=== PATIENT | male | born 1970 | race Caucasian/White ===

== ENCOUNTER 2019-02-02 09:25 | Observation (INO) ==
[2019-02-02 10:01] LABS: BASO# 0.02 X1000 (0.0-0.2); BASO% 0.2 % (0.0-0.8); EOS# 0.04 X1000 (0.0-0.7); EOS% 0.5 % (0.0-10.0); HEMATOCRIT 45.9 % (42.0-52.0); HEMOGLOBIN 15.6 g/dL (14.0-18.0); IMM GRAN# 0.02 X1000 (0.0-0.04); IMM GRAN% 0.2 % (0.0-0.5); LYMPH% 12.6 % (20.5-51.1); MCH 29.2 PG (27-31); MONO# 0.54 X1000 (0.11-0.59); MONO% 6.2 % (1.7-9.3); MPV 10.6 FL (7.4-10.4); NEUT# 7.04 X1000 (1.4-6.5); NEUT% 80.3 % (42.2-75.2); PLT 230 X1000 (130-400); RBC 5.34 XMIL (4.7-6.1); RDW 12.9 % (11.5-14.5); WBC 8.76 X1000 (4.8-10.8)
--- NOTE | 2019-02-02 10:14 | PROVIDER DOCUMENTATION ---
This chart was entered by Patricia Trinidad Scribe, acting as scribe for Ramírez Nick MD. HPI-Cardiac General - General Chief Complaint: Syncope Stated Complaint: PASSED OUT/HEART PT Time Seen by Provider: 02/02/19 09:43 Source: patient, family () Allergies/Adverse Reactions: Patient Allergies Allergy/AdvReac Type Severity Reaction Status Date / Time No Known Allergies Allergy Unverified 09/13/14 08:53 Home Medications: Home Medication List Medication Instructions Recorded Confirmed Last Taken Type Aspirin 81 mg PO DAILY #100 chewtab 12/08/12 02/02/19 02/02/19 09:00 Rx 81mg Fexofenadine [Ruby] 180 mg PO DAILY #30 tablet 12/08/12 02/02/19 02/02/19 09:00 Rx 180mg Metoprolol [Lopressor] 50 mg PO BID #60 tablet 12/08/12 02/02/19 02/02/19 09:00 Rx 50 mg Clopidogrel Bisulfate [Plavix] 75 mg PO DAILY 09/13/14 02/02/19 02/01/19 21:00 History 75mg Atorvastatin Calcium 40 mg PO HS 02/02/19 02/02/19 Unknown History Losartan Potassium 50 mg PO DAILY 02/02/19 02/02/19 02/01/19 21:00 History 50mg ATORVAstatin [Lipitor] 80 mg PO QHS tab 02/03/19 Unknown Rx Montelukast [Singulair] 10 mg PO QHS #30 tab 02/03/19 Unknown Rx - History of Present Illness-Cardiac Nature of Presenting Problem: 48 y/o male presents to the ED with complaint of syncopal episode with seizure- like activity 0130 this am. states the patient felt clamy, was shivering in bed and while attempting to go to the restroom stated he felt as if he was going to pass out and did fall to the floor with observing seizure-like activity for 2-3 seconds. The patient gives a history of previous [place] 7 years ago with stent placed by Dr. Cervantes 6 years ago and the patient now sees Dr. Wharton at [facility] for cardiology follow-up. NKDA. Onset/Duration: this morning Timing: resolved prior to arrival Context/Activities at Onset: reports: sleep Palpitation Quality: N/A History of arrythmia: reports: none Recent use of:: reports: no stimulants Nitro Today/Relief: reports: no nitro taken today Aspirin Treatment Today: reports: no aspirin today Prior Chest Pain/Cardiac Workup: reports: heart attack, other (stent placement) Associated Symptoms: reports: diaphoresis, syncope. denies: abdominal pain, fever/chills, nausea, shortness of breath, vomiting Similar Symptoms Previously?: Yes Recently Seen Here or By Another Healthcare Provider: No Review of Systems - Adult - REVIEW OF SYSTEMS - ADULT Constitutional: reports: chills. denies: fever, night sweats Eyes: reports: no symptoms reported Ears, Nose, Mouth & Throat: reports: no symptoms reported Cardiovascular: reports: syncope. denies: chest pain, palpitations Respiratory: denies: hemoptysis, shortness of breath, wheezing Gastrointestinal: reports: diarrhea (x1 this am). denies: nausea, vomiting Genitourinary: reports: no symptoms reported Musculoskeletal: reports: no symptoms reported Integumentary: reports: other (diaphoresis). denies: itching, rash Neurological: reports: syncope. denies: dizziness/vertigo, headache/migraines Psychiatric: reports: no symptoms reported Endocrine: reports: no symptoms reported Hematologic/Lymphatic: reports: no symptoms reported Allergic/Immunologic: reports: no symptoms reported All Other Systems: Reviewed and Negative Past History - Adult - PAST MEDICAL HISTORY-ADULT Review of Records: reports: Old Records Reviewed, Medications Reviewed Major Childhood Illnesses: reports: denies history Cardiovascular: reports: CAD, HTN, hyperlipidemia - PRIOR SURGERIES/PROCEDURES Surgical/Procedure History: reports: cardiac stent - PRIOR HOSPITALIZATIONS Prior Hospitalizations: reports: for other non-related - IMMUNIZATION STATUS Childhood Immunizations: See Nurse Assessment Flu Vaccine: See Nurse Assessment - FAMILY HISTORY Family History: reviewed, not pertinent - SOCIAL HISTORY Smoking: non-smoker Substance Use: none/never Living Situation: family Physical Exam-General - PHYSICAL EXAM-ADULT Initial Vital Signs Reviewed: Yes - CONSTITUTIONAL General Appearance: alert, no apparent distress - EYES Eyes: PERRL/EOMI, pink conjunctivae - HEAD, EARS, NOSE, MOUTH & THROAT HENMT: normocephalic/atraumatic, moist mucous membranes - NECK Neck: full range of motion, supple - RESPIRATORY Respiratory: lungs clear, normal breath sounds. negative: rales, rhonchi - CARDIOVASCULAR Cardiovascular: regular rate, rhythm, no gallop, no murmur - GASTROINTESTINAL (ABDOMEN) Abdominal Exam: non tender, soft - SKIN Integumentary: normal color, warm/dry. negative: diaphoresis - NEUROLOGIC Neurologic: grossly normal - PSYCHIATRIC Psych/Mental Status: normal mood/affect - HEART Score HEART Score: History: Slightly Suspicious HEART Score: ECG: Normal HEART Score: Age: 45-65 Years HEART Score: Risk Factors for Atherosclerotic Disease: > or = 3 Risk Factors or History of Atherosclerotic Disease HEART Score: Troponin: < or = Normal Limit Total HEART Score:: 3 Progress - PLAN OF CARE/RESULTS Result Diagrams: 02/03/19 06:50 02/03/19 06:50 - EKG 1 Time of EKG reading by physician:: 09:54 EKG Read and Signed by:: Ramírez Nick EKG Interpretation (*Must complete 3 of following elements*): Abnormal Rate: 80 Rhythm: NSR [place]: left Comments: septal infarct age undetermined - CT/MRI 1 CT Study: Head Impression: Normal (EXAM: CT HEAD W/O CONTRAST INDICATION: seizure TECHNIQUE: This exam was performed using automated exposure control, adjustment of mA or kV according to patient size, and/or use of iterative reconstruction technique. COMPARISON: 09/13/2014 FINDINGS: There is an incidental stable prominent Virchow-Harrison space adjacent to the right basal ganglion. There is no definite acute infarct given the limited sensitivity of CT versus MRI. There is no discrete intracranial mass, mass effect, or intracranial hemorrhage. The surrounding soft tissues and bony structures are essentially unremarkable. IMPRESSION: No evidence of acute intracranial pathology. Electronically signed by Emmanuel Costa 02/02/2019 10:50 AM) - CONSULTS/PCP/HOSPITALIST Notification #1 *Consult/PCP/Hospitalist*: Dr. Dan, Cardiology Time Discussed: 11:23 Reason/Comments: admit for observation and serial enzymes Consult Disposition: Admit Departure - Departure Date of Disposition Decision: 02/02/19 Time of Disposition Decision: 12:46 DIAGNOSIS: Syncope Qualifiers: Syncope type: unspecified Qualified Code(s): R55 - Syncope and collapse Disposition: ADMITTED INPATIENT 09 Certified Medical Emergency: Emergent Condition: Stable - Critical Care Note This patient required my direct & personal management of CC.: Yes Attestation - Physician/ ALEC Attestation Patient care was provided by Advanced Practice Provider:: No The physician spent face to face time with patient:: Yes Advanced Practice Provider documentation review:: Supervising physician onsite and consulted in the evaluation and care of this patient. The physician did have a face to face encounter with the patient. This chart was documented by the indicated scribe, (Patricia Trinidad, Marcelino) and accurately reflects the services I performed and decisions made by me, Ramírez Nick MD, as attested by the provider's signature.
[2019-02-02 10:17] LABS: AGAP 12; ALB/GLOB RATIO 1.9; ALBUMIN 4.7 g/dL (3.5-5.0); ALKALINE PHOSPHATASE 134 U/L (32-122); BUN 10 mg/dL (8-22); CALCIUM 9.4 mg/dL (8.8-10.2); CHLORIDE 100 mmol/L (98-107); CK PROFILE 147 U/L (24-204); COSMO 276; ESTIMATED GFR > 60; GLUCOSE 121 mg/dL (70-104); GOT 23 U/L (10-34); GPT 33 U/L (10-44); POTASSIUM 4.3 mmol/L (3.5-5.1); SODIUM 138 mmol/L (136-145); TCO2 26 mmol/L (25-35); TOTAL BILIRUBIN 0.58 mg/dL (0.20-1.00); TOTAL PROTEIN 7.2 g/dL (6.3-8.3)
[2019-02-02 10:26] LABS: INR 0.93; PROTIME 13.2 Seconds (11.0-16.0)
[2019-02-02 10:27] LABS: PTT 24.3 Seconds (22.3-41.8)
--- NOTE | 2019-02-02 10:52 | Diag Imaging Result Doc PS360 ---
EXAM: CT HEAD W/O CONTRAST INDICATION: seizure TECHNIQUE: This exam was performed using automated exposure control, adjustment of mA or kV according to patient size, and/or use of iterative reconstruction technique. COMPARISON: 09/13/2014 FINDINGS: There is an incidental stable prominent Virchow-Harrison space adjacent to the right basal ganglion. There is no definite acute infarct given the limited sensitivity of CT versus MRI. There is no discrete intracranial mass, mass effect, or intracranial hemorrhage. The surrounding soft tissues and bony structures are essentially unremarkable. IMPRESSION: No evidence of acute intracranial pathology. Electronically signed by Emmanuel Costa 02/02/2019 10:50 AM
--- NOTE | 2019-02-02 12:15 | Diag Imaging Result Doc PS360 ---
EXAM: CHEST-2 VIEWS INDICATION: syncope TECHNIQUE: 2 views COMPARISON: 09/13/2014 FINDINGS: The lungs are grossly clear. There is no discrete pleural fluid collection or pneumothorax. The cardiomediastinal silhouette and central vasculature are grossly unremarkable. IMPRESSION: No evidence of acute pathology by plain radiograph. Electronically signed by Emmanuel Costa 02/02/2019 12:12 PM
[2019-02-02] MEDS ORDERED: SODIUM CHLORIDE 0.9% INJ ONE (12:50)
--- NOTE | 2019-02-02 16:26 | HISTORY AND PHYSICAL ---
CHIEF COMPLAINT: Syncope. A 48-year-old, white gentleman, patient of Dr. Bush was admitted with syncope. The patient was in his usual state of health. Lately the patient does have problem with runny nose, stuffy nose, sinus drainage, postnasal drip. Last night, the patient did have some throat irritation. He woke up, and got some water. Because of postnasal drip he got up to go to the bathroom. He took his bottle, next thing patient remembers he was on the floor. His was there who call 911. According to he did have some tonic clonic movement which she described as a seizure. The patient had abrasion right upper quadrant. According to , the patient passed out for few seconds. The patient remembers talking to EMS. He denied any chest pain, palpitations prior to this episode. He denied any headache. The patient had significant past medical history of heart disease including coronary artery disease, heart attack, stent placement and patient was brought to the emergency room. Evaluated by ER physician. The ER physician talked to collaborative physician. Because of his significant problems, collaborative physician recommended to admit patient for observation. The patient denied any major headache. No nosebleed, diplopia. Currently no chest pain. Denied any fever or chills. Denied unusual cough, expectoration, or hemoptysis. No abdominal pain, nausea, or vomiting. Denied any dysuria or hematuria. No heat or cold intolerance. ALLERGIES: No known drug allergy. MEDICATIONS: The patient is on aspirin, Lipitor, Plavix, Ruby, Flonase, beta geovany. PAST MEDICAL HISTORY: Coronary artery disease and stent placement, hypertension, hyperlipidemia, allergic rhinitis. FAMILY HISTORY: Father with coronary artery disease and stroke, otherwise noncontributory. PERSONAL HISTORY: , lives with the . Nonsmoker. Denied alcohol and substance abuse. 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 REVIEW OF SYSTEMS: As per HPI. PHYSICAL EXAMINATION: GENERAL: Middle-aged white gentleman, in no acute distress. VITAL SIGNS: Blood pressure 157/90, pulse 84, respiration 18, temperature 98.3 degrees. SKIN: Normal turgor. No rash or petechiae. HEENT: Head atraumatic, normocephalic. [place] conjunctivae. Anicteric sclerae. Extraocular muscle movement normal. Fundus cannot be penetrated. Good oral hygiene. No tonsillopharyngeal congestion or exudate. Ears and nose benign. NECK: Supple. No JVD, thyromegaly or lymphadenopathy. CHEST: Bilateral good air entry present. No rales or rhonchi. CARDIOVASCULAR: S1 and S2 heard. No gallop or thrill. ABDOMEN: Soft. No distention. Bowel sounds present. Nontender. Patient does have linear abrasion right upper quadrant where he hit his belly with a dresser when he fell down. EXTREMITIES: No cyanosis, clubbing. No acute DVT. PROCEDURES NURSE: Alert, awake oriented x3. No focalities. CONSIDERATION: 1. Syncope. Differential includes vasovagal. 2. Vertigo. 3. Patient other problems: Patient does have coronary artery disease. I reviewed his EKG and cardiac isoenzymes. Clinically, patient did not have any chest pain. 4. Hyperlipidemia. I am going to admit him to telemetry to make sure no cardiac arrhythmia. PLAN: Admit patient for observation. Fall precaution. Close observation. Overall plan discussed with the patient and and they are in agreement. LABORATORY DATA: Revealed WBC count 8.76, hemoglobin 15.6, hematocrit 45.9, platelet count 230,000. PT/PTT were normal. Electrolytes were benign. Alkaline phosphatase 134. Cardiac isoenzymes were negative. Patient had CT scan of the head done and no evidence of acute intracranial pathology. His chest x-ray was also benign. I am going to check postural blood pressure and heart rate. Continue home medicine. Cardiology consult. cc: Foreign Brush MD
--- NOTE | 2019-02-02 19:16 | CARDIOLOGY CONSULTATION ---
DATE: 02/02/2019 CONSULTATION REQUESTED BY: Dr. Bush and Dr. Bursh. REASON FOR CONSULTATION: Syncope. HISTORY: Mr. Rivera is a 48-year-old, male who was in his usual state of health up until about 1:30 a.m. The patient woke up to go to the bathroom. He tried to reach a glass of water at the end of his bed, and then he found himself lying on the floor. His woke him up. He was able to get up again. stated that apparently he was shaking as he was lying on the floor for a very short period of time. He denies having any chest pain thereafter or before he passed out. No dyspnea, no diaphoresis, no nausea. He said that he had been bothered by a lot of sinus drainage, and he was somewhat upset in the stomach. He takes Ruby for that. This is typical for this time of the year. The patient says that about 5 years ago, after a long drive of 18 hours going back and forth to [place], he had a similar episode almost under identical circumstances. Back then, he was seen in the ER and was told that he was probably somewhat dehydrated. In fact, we have a record of that event that happened on 09/16/2014. At that time, the physicians in the ER allowed him to go home. This time, he was kept in the hospital. The patient has had thus far 2 troponin levels checked, and they were normal. ProBNP is normal. 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 PAST HISTORY: Positive for a myocardial infarction which took place in 2012. At that time, actually I saw him in consultation. He ended up being seen by Dr. Mike Cervantes in [place], and he underwent stenting at [facility], and since then, he has followed with [place] team. Currently, his sewage treatment plant operator is Dr. Wharton at [facility]. The patient has hypertension and hyperlipidemia. SURGICAL HISTORY: Negative. MEDICATIONS: Home medications include aspirin 81, atorvastatin 80 mg, clopidogrel 75, losartan 50, metoprolol 50 twice a day and Ruby 180 daily. ALLERGIES: He has no allergies. SOCIAL HISTORY: He is to his for about 7 years. He has 2 biological children and 1 stepdaughter. He is not a smoker. 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 He has no difficulty doing his work. He works from 7:30 to usually 3:30 or 4:30 every day. Nothing unusual has happened lately. He admits to the fact that probably he is not drinking as much water as he should. REVIEW OF SYSTEMS: Multiple systems were checked. Nothing is really positive other than the seasonal allergy that typically happens this time of the year. He has not experienced any cardiovascular complaint in the past 5 years. PHYSICAL EXAMINATION: Vital signs: Blood pressure is 126/77, temperature 98.4 degrees, pulse 72, respiration 18. General: He is awake, alert, oriented, in no distress. HEENT: Unremarkable. Chest: Clear to auscultation and percussion. Heart: Sounds regular and rhythmic. No gallop or murmur. Abdomen: Nontender, soft. No masses. No hepatomegaly. Extremities: Show good pulses. No peripheral edema. Neurological: Nonfocal. Moves 4 extremities. Gait is normal. BLOOD WORK: As I said, his chemistry is basically normal. Glucose of 121. Alkaline phosphatase 134 (normal is up to 122). IMPRESSION: 1. Patient presenting with a syncopal episode that happened after getting out of bed at 1:30 in the morning. More than likely, this was vasodepressor syncope. The fact that he had some shakiness with it suggests that he may have had a long bradycardic spell or question of a brief episode of asystole. I doubt that we are dealing with Davis-Sal syndrome. 2. History of severe coronary heart disease, status post myocardial infarction in 2013 followed by stent. This appears to be clinically stable. The patient has no chest pain. He took a stress test with his sewage treatment plant operator about a month ago, and everything was fine. 3. History of hypertension. 4. Hyperlipidemia. 5. Obesity. Body mass index is 36. RECOMMENDATION: At this time, the patient is advised to work on losing weight. We will observe him overnight and do additional troponin and EKG in the morning, and if everything is negative and the patient is feeling just fine, I do not have any reason to keep him in the hospital and do any further testing. He is encouraged to keep himself well hydrated and to follow up with Dr. Wharton in [place] who is his regular sewage treatment plant operator. Consideration may be given of providing him with a loop recorder monitor for a month. I do not have any reason to suspect that he had ventricular tachycardia as the mechanism of his syncopal episode. Please call me if you have any questions or concerns. cc: MD Foreign Ortega MD MTDD
[2019-02-02] MEDS: LOPRESSOR PO SCH (20:28)
[2019-02-02] MEDS ORDERED: LIPITOR PO SCH (21:00)
[2019-02-03 07:20] LABS: BASO# 0.03 X1000 (0.0-0.2); BASO% 0.4 % (0.0-0.8); EOS% 1.5 % (0.0-10.0); HEMATOCRIT 44.8 % (42.0-52.0); HEMOGLOBIN 15.1 g/dL (14.0-18.0); LYMPH# 1.86 X1000 (1.2-3.4); LYMPH% 27.4 % (20.5-51.1); MCH 29.8 PG (27-31); MCHC 33.7 g/dL (33-37); MCV 88.5 FL (81-99); MONO# 0.65 X1000 (0.11-0.59); MONO% 9.6 % (1.7-9.3); MPV 10.5 FL (7.4-10.4); NEUT# 4.14 X1000 (1.4-6.5); NEUT% 61.1 % (42.2-75.2); PLT 196 X1000 (130-400); RBC 5.06 XMIL (4.7-6.1); RDW 13.5 % (11.5-14.5); WBC 6.78 X1000 (4.8-10.8)
[2019-02-03 07:52] VITALS: BP 122/69
[2019-02-03 07:57] LABS: AGAP 11; ALB/GLOB RATIO 1.4; ALKALINE PHOSPHATASE 120 U/L (32-122); BUN 12 mg/dL (8-22); CALCIUM 8.7 mg/dL (8.8-10.2); CHLORIDE 105 mmol/L (98-107); CHOLESTEROL 115 mg/dL (0-200); COSMO 285; CREATININE 1.1 mg/dL (0.7-1.2); ESTIMATED GFR > 60; GLUCOSE 99 mg/dL (70-104); GOT 19 U/L (10-34); GPT 28 U/L (10-44); HDL 31 mg/dL (35-55); LDL 55 mg/dL; MAGNESIUM 1.9 mg/dL (1.5-2.7); POTASSIUM 4.2 mmol/L (3.5-5.1); SODIUM 143 mmol/L (136-145); TCO2 27 mmol/L (25-35); TOTAL BILIRUBIN 0.73 mg/dL (0.20-1.00); TOTAL PROTEIN 6.8 g/dL (6.3-8.3); TRIGLYCERIDES 145 mg/dL (39-160); VLDL 29 mg/dL
[2019-02-03] MEDS: LOPRESSOR PO SCH (08:18)
[2019-02-03] MEDS ORDERED: ASPIRIN PO SCH (09:00)
[2019-02-03] MEDS ORDERED: PROTONIX IV SCH (09:00)
[2019-02-03] MEDS ORDERED: FLONASE NAS SCH (09:00)
[2019-02-03] MEDS ORDERED: ALLEGRA PO SCH (09:00)
[2019-02-03] MEDS ORDERED: PLAVIX PO SCH (09:00)
--- NOTE | 2019-02-03 10:05 | CARDIOLOGY PROGRESS NOTE ---
DATE: 02/03/2019 CHIEF COMPLAINT: Syncope. SUBJECTIVE: Mr. Contreras has not had any further episodes of lightheadedness or syncope. He has been up and about. They have checked his troponin levels 6 times, all of them normal. His EKG this morning shows sinus rhythm with left axis deviation and septal scar which is the pattern that he has had for a long time. His lipid panel was checked today. Total cholesterol is 115, triglycerides 145, LDL is 55, HDL is 31. His chemistry panel is completely normal. OBJECTIVE: Blood pressure is 122/69, temperature 97.5, pulse 78, respirations 14. hand cutter apprentice shows no arrhythmia. He is sitting upright, conversant, in no distress. HEENT is unremarkable. Chest is clear to auscultation and percussion. Heart sounds are regular and rhythmic. I do not hear gallop or murmur. Abdomen is nontender. Extremities showed no edema. Good pulses. Neurologic: Follows commands. Moves all 4 extremities. IMPRESSION: 1. The patient presented with what appears to be a vasodepressor syncope. 2. History of myocardial infarction, anteroapical, status post stent. 3. History of hypertension. 4. Hyperlipidemia. Optimally managed. 5. Obesity. BMI is 36. RECOMMENDATIONS: At this point in time, the patient appears to be stable from the cardiac viewpoint. Because he just had recent testing by his primary wood science professor in [place], I do not believe that we need to do any further testing. In my opinion, his syncope is totally benign. Nevertheless, I would suggest to him to contact Dr. Wharton at [facility] and let him know about this admission and decide if he wishes to pursue any further testing like a 30-day ACD or loop recorder monitor. The patient is free to go home and continue present medical therapy at this time. The case was discussed with Dr. Brush who was covering for Dr. Bush who is the patient's primary care physician. cc: MD Foreign Ortega MD Dr. White, wood science professor, [facility]
--- NOTE | 2019-02-03 14:27 | DISCHARGE SUMMARY ---
ADMISSION DATE: 02/02/2019 DISCHARGE DATE: 02/03/2019 FINAL DISCHARGE DIAGNOSIS: 1. Syncope. 2. Coronary artery disease . 3. Hyperlipidemia. 4. Rhinitis. 5. Hypertension . 6. Obesity. Mr. Rivera 48-year-old, white gentleman admitted with syncope. Patient does have problem with rhinitis, rest of the history from admission history, physical. The patient does have history of coronary artery disease and stent placement. The patient evaluated in the ER, admitted for further care. HOSPITAL COURSE: Patient stayed on telemetry patient did fairly well. Patient was able to ambulate well in the room and hallway. Local Hazmat Driver evaluated patient and recommendation noted. He denied any chest pain, palpitation or dizziness, no fever, chills. Vital sign noted. Neck: Supple. No JVD. Lungs: Bilateral good air entry present. CVS: S1 and S2 heard. Abdomen: Soft, nontender. Bowel sounds present. Extremities: No cyanosis, clubbing, no acute DVT. BALLPOINT PEN CARTRIDGE TESTER: Alert, awake, able to move all 4 limbs. CONSIDERATION: 1. Syncope could be due to postural changes versus related to his allergic rhinitis . 2. Coronary artery disease myocardial infarction ruled out by negative cardiac isoenzymes. Telemetry did not reveal any arrhythmia. Local Hazmat Driver recommended to have event monitor placed, encouraged patient to lose weight, regular exercise. 3. Hyperlipidemia, hypertension. Advised patient to stop Flonase, I am going to add Singulair. Continue rest of the treatment. Follow up with Dr. Bush in a week. Follow up with food packer as scheduled. In case of more distress call us back or go to emergency room. LAB DATA: CBC was fairly benign. Electrolytes were benign. Lipid panel was satisfactory. Patient head CT was negative, so is the chest x-ray. Overall discharge condition satisfactory. Discharge plan discussed at length with patient and family. They are in agreement. New prescription of Singulair 10 mg p.o. daily given. cc: Foreign Brush MD
--- NOTE | 2019-02-04 08:04 | EKG Report ---
Test Performed on : 02/02/2019 3:49:23 PM Test Reason : CP Blood Pressure : / mmHG Vent. Rate : 069 BPM Atrial Rate : 069 BPM P-R Int : 178 ms QRS Dur : 092 ms QT Int : 382 ms P-R-T Axes : 040 -36 039 degrees QTc Int : 409 ms Normal sinus rhythm. Left axis deviation Septal infarct (cited on or before 03-DEC-2012) Abnormal ECG When compared with ECG of 02-FEB-2019 09:53, (Unconfirmed) No significant change was found Unconfirmed Result
--- NOTE | 2019-02-04 08:06 | EKG Report ---
Test Performed on : 02/03/2019 06:02:56 AM Test Reason : syncope Blood Pressure : / mmHG Vent. Rate : 063 BPM Atrial Rate : 063 BPM P-R Int : 178 ms QRS Dur : 088 ms QT Int : 394 ms P-R-T Axes : 039 -23 041 degrees QTc Int : 403 ms Normal sinus rhythm. Septal infarct (cited on or before 03-DEC-2012) Abnormal ECG When compared with ECG of 02-FEB-2019 15:49, (Unconfirmed) No significant change was found Unconfirmed Result
--- NOTE | 2019-02-04 08:20 | EKG Report ---
Test Performed on : 02/02/2019 09:53:47 AM Test Reason : syncope Blood Pressure : / mmHG Vent. Rate : 080 BPM Atrial Rate : 080 BPM P-R Int : 190 ms QRS Dur : 090 ms QT Int : 344 ms P-R-T Axes : 030 -37 051 degrees QTc Int : 396 ms Normal sinus rhythm. Left axis deviation Septal infarct (cited on or before 03-DEC-2012) Abnormal ECG When compared with ECG of 13-SEP-2014 11:36, No significant change was found Unconfirmed Result
--- NOTE | 2019-02-04 11:38 | EKG Report ---
Test Performed on : 02/03/2019 08:39:46 AM Test Reason : 3N. No order in [place] Blood Pressure : / mmHG Vent. Rate : 070 BPM Atrial Rate : 070 BPM P-R Int : 164 ms QRS Dur : 092 ms QT Int : 378 ms P-R-T Axes : 031 -34 027 degrees QTc Int : 408 ms Normal sinus rhythm. Left axis deviation Septal infarct (cited on or before 03-DEC-2012) Abnormal ECG When compared with ECG of 03-FEB-2019 06:02, (Unconfirmed) No significant change was found Unconfirmed Result
== END 2019-02-03 12:16 | disposition home or self-care (01) ==
LOC: ED 09:25 → 3N 09:25
PROVIDERS: ADMIT Internal Medicine; ATTEND Internal Medicine
CPT/HCPCS: 70450; 71020; 71046; 80053; 80061; 82550; 83735; 83880; 84484; 85025; 85610; 85730; 93005; 93010; 94761; 99285; A9270; C9113; S0164